=== PATIENT | male | born 1990 | race African-American/Black ===

== ENCOUNTER 2017-03-18 14:08 | Emergency (ER) | payer OTHER ==
[~2017-03-18] VITALS: Ht 177.8 cm; Wt 65.0 kg
[~2017-03-18 14:08] MED LIST: AMOX875 PO; HYDR-3533 PO; IBUP800T23 PO; MMW SSP
[2017-03-18 14:11] VITALS: BP 114/66; PULSE 89; RESP 24; TEMP 99.6; O2SAT 98
[2017-03-18 14:20] VITALS: BP 160/96; PULSE 106; RESP 24; TEMP 98.9; O2SAT 99
[2017-03-18] MEDS ORDERED: TETANUS/DIPHTHERIA TOXOID ADULT 0.5 ML VIAL IM ONE (14:30)
[2017-03-18] MEDS ORDERED: ACETAMINOPHEN/HYDROcodone 325 MG/5 MG TAB PO ONE (14:30)
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
--- NOTE | 2017-03-18 15:16 | RADRPT ---
EXAM DATE/TIME: 03/18/2017 14:51 [facility] COMPARISON: No previous studies available for comparison. INDICATIONS : Pain lateral mid shaft forearm MEDICAL HISTORY : None. SURGICAL HISTORY : None. ENCOUNTER: Initial ACUITY: 1 day PAIN SCORE: 9/10 LOCATION: Left forearm FINDINGS: Two view examination of the left forearm demonstrates no evidence of fracture or dislocation. Bony m ineralization is normal. The soft tissue structures are intact. CONCLUSION: Unremarkable examination of the left forearm. Rene Gutierrez Jr., MD on March 18, 2017 at 15:15 Board Certified Radiologist. This report was verified electronically.
--- NOTE | 2017-03-18 15:35 | RADRPT ---
EXAM DATE/TIME: 03/18/2017 14:55 [facility] COMPARISON: No previous studies available for comparison. INDICATIONS : Pain entire thumb MEDICAL HISTORY : None. SURGICAL HISTORY : None. ENCOUNTER: Initial ACUITY: 1 day PAIN SCORE: 3/10 LOCATION: Right thumb FINDINGS: Examination of the first digit of the right hand demonstrates no evidence of fracture or dislocation. No radiopaque foreign bodies are seen. The soft tissues are intact. CONCLUSION: Unremarkable examination of the right first finger. Rene Gutierrez Jr., MD on March 18, 2017 at 15:33 Board Certified Radiologist. This report was verified electronically.
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
[2017-03-18] MEDS ORDERED: AZITHROMYCIN PWD FOR SUSP 1 GM PACKET PO ONE (16:00)
[2017-03-18] MEDS ORDERED: LIDOCAINE HCL 1% 50 ML VIAL XX ONE (16:00)
[2017-03-18] MEDS ORDERED: cefTRIAXone 250 MG VIAL IM ONE (16:00)
[2017-03-18] MEDS ORDERED: SODIUM CHLORIDE 0.9% FLUSH 10 ML FLUSH IVF PRN (16:00)
[2017-03-18] MEDS ORDERED: DICL75TA PO ×2 (16:10→17:30)
[2017-03-18 16:17] LABS: BACTERIA, URINE MANY /hpf; BILIRUBIN, URINE NEG (NEG); BLOOD, URINE MOD (NEG); GLUCOSE,URINE NEG (NEG); KETONE, URINE NEG (NEG); NITRITE,URINE NEG (NEG); URINE COLOR LIGHT-YELLOW (YELLW/STRAW); URINE LEUKOCYTE ESTERASE LARGE (NEG); WHITE BLOOD CELL CLUMPS MANY
[2017-03-18] MEDS ORDERED: BACT800T5 PO (17:04)
== END 2017-03-18 18:13 ==
LOC: NEPC 14:08
DX: T14.8XXA Other injury of unspecified body region, initial encounter (principal); S00.31XA Abrasion of nose, initial encounter; S40.811A Abrasion of right upper arm, initial encounter; N34.2 Other urethritis; B96.89 Other specified bacterial agents as the cause of diseases classified elsewhere; Y00.XXXA Assault by blunt object, initial encounter; Z23 Encounter for immunization
CPT/HCPCS: 70450; 73090; 73140; 81001; 87086; 87491; 87591; 90471; 90714; 96372; 99285; J0696